=== PATIENT | male | born 1935 | race Caucasian/White ===

== ENCOUNTER 2016-07-22 11:36 | Day surgery (SDC) | payer OTHER, MEDICAID ==
[~2016-07-22] VITALS: Ht 170.2 cm; Wt 85.5 kg
[~2016-07-22 11:36] MED LIST: ASPI81 PO; DILT30 PO; FURO40TA PO; GLIP10TA6 PO; KLOR8TAB PO; LISI-357 PO; POLY17S PO; PROP10TA26 PO; ROSU20 PO; TERA5 PO; VITATAB25 PO
[2016-07-22] MEDS ORDERED: NS 1000P @30 MLS/HR (KVO) IV SCH (12:00)
[2016-07-22 12:12] VITALS: BP 157/92; PULSE 74; RESP 18; TEMP 98.1; O2SAT 95
[2016-07-22] MEDS ORDERED: TRAM50TA PO (12:20)
[2016-07-22] MEDS ORDERED: ASPI81TA5 PO (12:20)
[2016-07-22] MEDS ORDERED: CARV12.52 PO (12:20)
[2016-07-22] MEDS ORDERED: TERA10CA3 PO (12:20)
[2016-07-22] MEDS ORDERED: GLIP10TA6 PO (12:20)
[2016-07-22] MEDS ORDERED: ATOR1TAB18 PO (12:20)
[2016-07-22 12:32] LABS: AUTOMATED NEUTROPHIL # 3.7 TH/MM3 (1.8-7.7); BASOPHIL # 0.1 TH/MM3 (0-0.2); EOSINOPHIL # 0.1 TH/MM3 (0-0.4); EOSINOPHIL % 1.7 % (0.0-4.0); HEMATOCRIT 44.6 % (39.0-51.0); HEMO FLAGS DIFF FINAL; LYMPH % 31.3 % (9.0-44.0); MEAN CELL VOLUME 88.9 FL (80.0-100.0); MEAN CORPUSCULAR HEMOGLOBIN 29.3 PG (27.0-34.0); MONO % 6.8 % (0.0-8.0); NEUT % 59.2 % (16.0-70.0); PLATELET COUNT 124 TH/MM3 (150-450); RED BLOOD COUNT 5.02 MIL/MM3 (4.50-5.90); WHITE BLOOD COUNT 6.3 TH/MM3 (4.0-11.0)
[2016-07-22 12:40] LABS: APTT (PATIENT) 27.2 SEC (24.3-30.1); INTERNATIONAL NORMALIZED RATIO 1.1 RATIO; PROTHROMBIN TIME - PATIENT 11.7 SEC (9.8-11.6)
[2016-07-22 12:49] LABS: BICARBONATE 27.5 MEQ/L (21.0-32.0); POTASSIUM 3.6 MEQ/L (3.5-5.1)
[2016-07-22] MEDS ORDERED: MIDAZOLAM HCL 2 MG/2 ML VIAL ONE (15:36)
[2016-07-22] MEDS ORDERED: HEPARIN SODIUM - IV 10,000 UNITS/10 ML VIAL ONE (15:37)
[2016-07-22] MEDS ORDERED: VERAPAMIL HCL 5 MG/2 ML VIAL ONE (15:37)
[2016-07-22] MEDS ORDERED: NITROGLYCERIN INJ 5 ML ONE (15:37)
[2016-07-22] MEDS ORDERED: HEPARIN-NS/PF INJ 500 ML ONE (15:38)
[2016-07-22] MEDS ORDERED: IOHEXOL 350 MG/ML 100 ML BTL (for Cath Lab) OTHER ONE (15:52)
[2016-07-22] MEDS ORDERED: SODIUM CHLOR 0.9% 1000 ML INJ 1,000 ML IV SCH (16:32)
[2016-07-22] MEDS ORDERED: MISC INFORMATION XX ONE (16:45)
[2016-07-22] MEDS ORDERED: SODIUM CHLORIDE 0.9% FLUSH 5 ML FLUSH IVF PRN (16:45)
--- NOTE | 2016-07-22 16:49 | MA ---
cc: PABLO RICCI M.D., JOHN R. M.D. DATE 07/22/[address] Frank Hawthorne INDICATION He is an 81-year-old white male with coronary artery disease and status post CABG who presented complaining of dyspnea with exertion and was found to have a positive nuclear stress test with anterior wall ischemia. PROCEDURES PERFORMED 1. Left cardiac catheterization via left radial approach. 2. Selective coronary angiography. 3. Selective OLGUIN angiography. 4. No left ventricular angiogram was performed secondary to history of chronic kidney disease. PROCEDURE DETAILS 1% lidocaine to left wrist. Micropuncture needle into the left radial artery later exchanged for a 5-Belarusian sheath. Diagnostic angiography performed with 5-Belarusian INDIO, JL 3.5 and AR MOD catheter, respectively. The patient tolerated the procedure well and left the laboratory hemodynamically stable and chest pain free. At the end of the procedure radial sheath was removed and good hemostasis was obtained with a radial band. HEMODYNAMIC RESULTS The patient remained in normal sinus rhythm.. Aortic pressure was 112/63 with a mean of 82 mmHg. MEDICATIONS Versed 2 mg IV x1. Heparin 4300 units IV x1. Verapamil 2.5 mg intraarterial. Nitroglycerine 200 micrograms intraarterial. CONTRAST Total amount of contrast used was 60 mL of Omnipaque 300. ANGIOGRAPHIC Left main with 0% stenosis. Left anterior descending artery was 100% occluded after the origin of the first septal branch. The circumflex artery was a dominant vessel which had 0% stenosis. The right coronary artery was a non dominant vessel 100% occluded in its proximal segment. The OLGUIN to the left anterior descending artery was widely patent with 0% stenosis. IMPRESSION 1. Critical one-vessel coronary artery disease involving the left anterior descending artery. 2. Patent OLGUIN to the LAD. 3. Dominant left circumflex with no angiographic disease. RECOMMENDATIONS 1. Continue aspirin, statins, beta blockers and GEO inhibitor as tolerated. 2. Continue risk factor modification with cardiac diet, regular exercise and weight loss. Results represent a false positive stress test. MD JULIÁN Swann/BETZY /4:23 PM /4:38 PM [facility]ITAL[facility]
[2016-07-22] MEDS ORDERED: SODIUM CHLORIDE 0.9% FLUSH 5 ML FLUSH IVF SCH (21:00)
--- NOTE | 2016-07-23 21:22 | EKG ---
Date Performed: 07/22/2016 Time Performed: 12:47:12 PTAGE: 81 years EKG: Sinus rhythm with 1st degree A-V block Lead(s) unsuitable for analysis: V3 Inferior/lateral T wave changes are no nspecific Abnormal ECG PREVIOUS TRACING : 05/13/2015 17.16 DOCTOR: Herberth Glez Interpretating Date/Time 07/23/2016 21:11:05
== END 2016-07-22 20:35 | disposition home or self-care (01) ==
LOC: HDOC 11:36 → HDIC 11:37 → HDOC 20:35
PROVIDERS: ATTEND Specialist
DX: I25.10 Atherosclerotic heart disease of native coronary artery without angina pectoris (principal)
CPT/HCPCS: 80048; 85025; 85610; 85730; 93005; 93454; C1769; C1893; J1644; J2250; J3010; J7030; Q9967

== ENCOUNTER 2016-08-03 11:39 | Emergency (ER) | payer OTHER ==
[~2016-08-03] VITALS: Ht 172.7 cm; Wt 85.0 kg
[~2016-08-03 11:39] MED LIST changes: -ASPI81 PO; +ASPI81TA5 PO; +ATOR1TAB18 PO; +CARV12.52 PO; -DILT30 PO; -FURO40TA PO; -KLOR8TAB PO; -LISI-357 PO; -POLY17S PO; -PROP10TA26 PO; -ROSU20 PO; +TERA10CA3 PO; -TERA5 PO; +TRAM50TA PO; -VITATAB25 PO
[2016-08-03 11:42] VITALS: BP 145/64; PULSE 65; RESP 16; TEMP 98.2; O2SAT 98
[2016-08-03] MEDS ORDERED: FURO40TA PO (21:18)
== END 2016-08-03 12:46 | disposition left against medical advice (07) ==
LOC: NED 11:39
DX: R68.89 Other general symptoms and signs (principal)
CPT/HCPCS: 99281

== ENCOUNTER 2016-08-03 18:02 | Emergency (ER) | payer OTHER ==
[~2016-08-03] VITALS: Ht 172.7 cm; Wt 80.0 kg
[2016-08-03 18:05] VITALS: BP 132/61; PULSE 70; RESP 17; TEMP 98.4; O2SAT 97
[2016-08-03] MEDS ORDERED: SODIUM CHLOR 0.9% 1000 ML INJ 1,000 ML IV SCH (21:14)
[2016-08-03] MEDS ORDERED: SODIUM CHLORIDE 0.9% FLUSH 5 ML FLUSH IVF PRN (21:15)
[2016-08-03] MEDS ORDERED: MORPHINE SULFATE 4 MG/ML INJ IV PUSH ONE (21:15)
[2016-08-03] MEDS ORDERED: ONDANSETRON HCL 4 MG/2 ML VIAL IVP ONE (21:15)
[2016-08-03 21:18] VITALS: RESP 16
[2016-08-03] MEDS ORDERED: FURO40TA PO (21:18)
--- NOTE | 2016-08-03 21:31 | PD ---
HPI Chief Complaint: Complaint Time Seen by Provider: 21:05 Travel History International Travel<30 days: No Contact w/Intl Traveler<30days: No Traveled to known affect area: No History of Present Illness HPI Patient is an 81-year-old male who presents to emergency room with complaints of right-sided flank pain. Patient reports that he has been having right-sided flank pain which is been intermittent in nature for the past 3 days. Patient reports that the pain does radiate to his flank. Reports no history of kidney stones in the past. Denies hematuria. Denies dysuria, urinary urgency, reports urinary frequency. Denies chest pain or shortness of breath. Denies fevers or chills. PFSH Past Medical History Hx Anticoagulant Therapy: Yes (aspirin) Arthritis: Yes Blood Disorders: No Heart Rhythm Problems: No Cancer: No Cardiac Catheterization: Yes Cardiovascular Problems: Yes ([place], stent) High Cholesterol: Yes Chemotherapy: No Chest Pain: No Congestive Heart Failure: No COPD: Yes Diabetes: Yes Patient Takes Glucophage: Yes Diminished Hearing: Yes Endocrine: Yes Gastrointestinal Disorders: No Glaucoma: No Genitourinary: No Hepatitis: No Hiatal Hernia: No Hypertension: Yes Immune Disorder: No Musculoskeletal: Yes Neurologic: No Psychiatric: No Reproductive: No Respiratory: Yes (COPD) Integumentary: No Immunizations Current: Yes Myocardial Infarction: Yes Radiation Therapy: No Sickle Cell Disease: No Thyroid Disease: No Influenza Vaccination: Yes Past Surgical History Abdominal Surgery: No AICD: No Arteriovenous Shunt: No Cardiac Surgery: Yes (CABG 24 YRS/ ANGIOPLASTY AND STENTS) Coronary Artery Bypass Graft: Yes (SINGLE) Coronary Stent: Yes (STENT IN R. FEMEROL) Ear Surgery: No Endocrine Surgery: No Eye Surgery: No Genitourinary Surgery: No Gynecologic Surgery: No Insulin Pump: No Joint Replacement: No Oral Surgery: No Pacemaker: No Thoracic Surgery: Yes Other Surgery: Yes (CABG 24 YRS/ ANGIOPLASTY AND STENTS) Social History Alcohol Use: Yes (on occasion) Tobacco Use: No (QUIT 30 YRS AGO) Substance Use: No Allergies-Medications (Allergen,Severity, Reaction): Coded Allergies: No Known Allergies (Verified , 08/03/16) Reported Meds & Prescriptions Reported Meds & Active Scripts Active Reported Furosemide 40 Mg Tab 40 Mg PO BID Aspirin DR (Aspirin) 81 Mg Tabdr 81 Mg PO DAILY Atorvastatin (Atorvastatin Calcium) 80 Mg Tab 80 Mg PO HS Carvedilol 12.5 Mg Tab 12.5 Mg PO BID Glipizide 10 Mg Tab 10 Mg PO DAILY Take 30 minutes before a meal Terazosin (Terazosin HCl) 10 Mg Cap 10 Mg PO HS Tramadol (Tramadol HCl) 50 Mg Tab 50 Mg PO DIRECTED Review of Systems General / Constitutional: No: Fever Eyes: No: Visual changes HENT: No: Headaches Cardiovascular: No: Chest Pain or Discomfort Respiratory: No: Shortness of Breath Gastrointestinal: Positive: Abdominal Pain, No: Nausea, Vomiting Genitourinary: Positive: Frequency, No: Dysuria, Nocturia, Hematuria Musculoskeletal: No: Pain Skin: No Rash Neurologic: No: Weakness Psychiatric: No: Depression Endocrine: No: Polydipsia Hematologic/Lymphatic: No: Easy Bruising Physical Exam Narrative GENERAL: Nontoxic, no acute distress SKIN: Warm and dry. HEAD: Atraumatic. Normocephalic. EYES: Pupils equal and round. No scleral icterus. No injection or drainage. ENT: No nasal bleeding or discharge. Mucous membranes pink and moist. NECK: Trachea midline. No JVD. CARDIOVASCULAR: Regular rate and rhythm. No murmur appreciated. RESPIRATORY: No accessory muscle use. Clear to auscultation. Breath sounds equal bilaterally. GASTROINTESTINAL: Abdomen soft, non-tender, nondistended. Patient with right- sided flank pain. MUSCULOSKELETAL: No obvious deformities. No clubbing. No cyanosis. No edema. NEUROLOGICAL: Awake and alert. No obvious cranial nerve deficits. Motor grossly within normal limits. Normal speech. PSYCHIATRIC: Appropriate mood and affect; insight and judgment normal. Data Data Last Documented VS Vital Signs Date Time Temp Pulse Resp B/P Pulse Ox O2 Delivery O2 Flow Rate FiO2 08/03/16 21:18 16 08/03/16 18:05 98.4 70 132/61 97 Orders Complete Blood Count With Diff (08/03/16 21:14) Comprehensive Metabolic Panel (08/03/16 21:14) Lipase (08/03/16 21:14) Prothrombin Time / Inr (Pt) (08/03/16 21:14) Act Partial Throm Time (Ptt) (08/03/16 21:14) Urinalysis - C+S If Indicated (08/03/16 21:14) Ct Abd/Pel W/O Iv Contrast (08/03/16 21:14) Iv Access Insert/Monitor (08/03/16 21:14) Ecg Monitoring (08/03/16 21:14) Oximetry (08/03/16 21:14) Morphine Inj (Morphine Inj) (08/03/16 21:15) Ondansetron Inj (Zofran Inj) (08/03/16 21:15) Sodium Chlor 0.9% 1000 Ml Inj (Ns 1000 M (08/03/16 21:14) Sodium Chloride 0.9% Flush (Ns Flush) (08/03/16 21:15) Electrocardiogram (08/03/16 ) Labs Laboratory Tests Test 08/03/16 08/03/16 21:20 22:30 White Blood Count 10.0 TH/MM3 Red Blood Count 5.53 MIL/MM3 Hemoglobin 16.4 GM/DL Hematocrit 49.0 % Mean Corpuscular Volume 88.6 FL Mean Corpuscular Hemoglobin 29.6 PG Mean Corpuscular Hemoglobin 33.4 % Concent Red Cell Distribution Width 16.3 % Platelet Count 140 TH/MM3 Mean Platelet Volume 9.2 FL Neutrophils (%) (Auto) 53.8 % Lymphocytes (%) (Auto) 34.2 % Monocytes (%) (Auto) 8.5 % Eosinophils (%) (Auto) 3.0 % Basophils (%) (Auto) 0.5 % Neutrophils # (Auto) 5.4 TH/MM3 Lymphocytes # (Auto) 3.4 TH/MM3 Monocytes # (Auto) 0.9 TH/MM3 Eosinophils # (Auto) 0.3 TH/MM3 Basophils # (Auto) 0.0 TH/MM3 CBC Comment DIFF FINAL Differential Comment Prothrombin Time 10.8 SEC Prothromb Time International 1.0 RATIO Ratio Activated Partial 26.4 SEC Thromboplast Time Sodium Level 139 MEQ/L Potassium Level 3.9 MEQ/L Chloride Level 102 MEQ/L Carbon Dioxide Level 30.3 MEQ/L Anion Gap 7 MEQ/L Blood Urea Nitrogen 27 MG/DL Creatinine 1.53 MG/DL Estimat Glomerular Filtration 44 ML/MIN Rate Random Glucose 81 MG/DL Calcium Level 8.5 MG/DL Total Bilirubin 1.0 MG/DL Aspartate Amino Transf 24 U/L (AST/SGOT) Alanine Aminotransferase 37 U/L (ALT/SGPT) Alkaline Phosphatase 116 U/L Total Protein 7.0 GM/DL Albumin 3.8 GM/DL Lipase 409 U/L Urine Color YELLOW Urine Turbidity CLEAR Urine pH 6.5 Urine Specific [place] 1.013 Urine Protein NEG mg/dL Urine Glucose (UA) NEG mg/dL Urine Ketones NEG mg/dL Urine Occult Blood NEG Urine Nitrite NEG Urine Bilirubin NEG Urine Urobilinogen LESS THAN 2.0 MG/DL Urine Leukocyte Esterase NEG Urine RBC 1 /hpf Urine WBC 2 /hpf Urine Squamous Epithelial <1 /hpf Cells Urine Hyaline Casts 1 /lpf Urine Mucus FEW /lpf Microscopic Urinalysis Comment CULT NOT INDICATED MDM Medical Decision Making Medical Screen Exam Complete: Yes Emergency Medical Condition: Yes Interpretation(s) EKG from 2106: NSR at 69bpm, qt/qtc: 419/438, 1st degree av block, nonspecific st and t wave changes, no change from 07/22/16 Vital Signs Date Time Temp Pulse Resp B/P Pulse Ox O2 Delivery O2 Flow Rate FiO2 08/03/16 21:18 16 08/03/16 18:05 98.4 70 17 132/61 97 Differential Diagnosis ACS, kidney stones, pyelonephritis, uti, muscle strain, aortic dissection Narrative Course Patient is an 81-year-old male who presents most room with complaints of right sided flank pain. Patient reports that pain has been intermittent in nature, reports the pain started 3 days ago. Reports that symptoms pain is radiating to his right groin. Patient with no history of kidney stones in the past. Patient denies hematuria, denies your urinary urgency or dysuria. Reports urinary frequency. Patient well-appearing emergency room. Patient with intermittent right sided flank pain. CBC, BMP, UA ordered for further evaluation symptoms. CT of the abdomen and pelvis without IV contrast ordered for evaluation of possible kidney stone. Patient reevaluated, patient reports that he is feeling much better. Patient with resolution of pain at this time. Reviewed all labs and all studies with patient detail. Patient will follow-up with his primary care doctor and return to ER as needed. CBC: WBC 10 Hemoglobin 16.4 Hematocrit 49 Platelets 140 CMP: Sodium 139 Chloride 102 Potassium 3.9 Bicarbonate 30.3 BUN 27 Creatinine 1.53 Lipase 409 UA: Negative leuk esterase, negative nitrites CT of the abdomen and pelvis: No acute findings. Bilateral renal cysts. Sigmoid diverticulosis. No hydronephrosis or evidence for obstructive uropathy. Signs and symptoms of when to return to the emergency room reviewed patient in detail. Patient will return to ER as needed. Diagnosis Primary Impression: Flank pain Additional Impressions: Renal insufficiency Thrombocytopenia Elevated lipase Patient Instructions: General Instructions, Narcotic given in the ED Additional Instructions: Please give a copy of patient's labs and studies at discharge Please follow-up with your primary care doctor Return to ER symptoms progress or worsen Disposition: 01 DISCHARGE HOME Condition: Stable Ann Hubbard DO Aug 03, 2016 21:31
[2016-08-03 21:37] LABS: AUTOMATED NEUTROPHIL # 5.4 TH/MM3 (1.8-7.7); BASOPHIL % 0.5 % (0.0-2.0); EOSINOPHIL # 0.3 TH/MM3 (0-0.4); HEMO FLAGS DIFF FINAL; LYMPH % 34.2 % (9.0-44.0); LYMPHOCYTE # 3.4 TH/MM3 (1.0-4.8); MEAN CELL VOLUME 88.6 FL (80.0-100.0); MEAN CORPUSCULAR HEMOGLOBIN 29.6 PG (27.0-34.0); MEAN CORPUSCULAR HGB CONC 33.4 % (32.0-36.0); MONO % 8.5 % (0.0-8.0); NEUT % 53.8 % (16.0-70.0); PLATELET COUNT 140 TH/MM3 (150-450); RED BLOOD COUNT 5.53 MIL/MM3 (4.50-5.90); RED CELL DISTRIBUTION WIDTH 16.3 % (11.6-17.2)
[2016-08-03 21:51] LABS: APTT (PATIENT) 26.4 SEC (24.3-30.1); PROTHROMBIN TIME - PATIENT 10.8 SEC (9.8-11.6)
[2016-08-03 21:54] LABS: ANION GAP 7 MEQ/L (5-15); AST (GOT) 24 U/L (15-37); BICARBONATE 30.3 MEQ/L (21.0-32.0); BLOOD UREA NITROGEN 27 MG/DL (7-18); CHLORIDE 102 MEQ/L (98-107); GLOMERULAR FILTRATION RATE 44 ML/MIN (>89); POTASSIUM 3.9 MEQ/L (3.5-5.1); SODIUM (NA) 139 MEQ/L (136-145)
[2016-08-03 21:56] LABS: ALKALINE PHOSPHATASE 116 U/L (45-117); ALT (GPT) 37 U/L (12-78)
--- NOTE | 2016-08-03 22:20 | RADRPT ---
EXAM DATE/TIME: 08/03/2016 21:33 [facility] COMPARISON: No previous studies available for comparison. INDICATIONS : Bilateral flank pain today. ORAL CONTRAST: No oral contrast ingested. RADIATION DOSE: 11.02 CTDIvol (mGy) MEDICAL HISTORY : Hypertension. Chronic obstructive pulmonary disease. Cardiovascular disease SURGICAL HISTORY : CABG ENCOUNTER: Initial ACUITY: 1 day PAIN SCALE: 7/10 LOCATION: Bilateral flank TECHNIQUE: Volumetric scanning of the abdomen and pelvis was performed. Using automated exposure control and adjustment of the mA and/or kV according to patient size, radiation dose was kept as low as reasonably achievable to obtain optimal diagnostic quality images. FINDINGS: Small bilateral pleural effusions. No acute findings in the liver, spleen, adrenals or pancreas. Mult iple calcified gallstones in the gallbladder. Bilateral renal cysts present similar to May 2015. There is colonic diverticulosis without evidence for diverticulitis. There is a fat containing right inguinal hernia similar to prior exam. Prostate is enlarged with impingement on the base of the bladd er. CONCLUSION: No acute findings within the abdomen and pelvis. Small pleural effusions bilaterally. Multiple calcif ied gallstones without biliary ductal dilatation. Bilateral renal cysts. Sigmoid diverticulosis. No h ydronephrosis or evidence for obstructive uropathy. Farhad Guerrero MD on August 03, 2016 at 22:15 Board Certified Radiologist. This report was verified electronically.
[2016-08-03 23:07] LABS: BLOOD, URINE NEG (NEG); COMMENT (UR) CULT NOT INDICATED; CULTURE IF INDICATED CULT NOT INDICATED; GLUCOSE,URINE NEG (NEG); HYALINE CAST, URINE 1 /lpf (RARE); KETONE, URINE NEG (NEG); MUCUS URINE FEW /lpf (OCC); NITRITE,URINE NEG (NEG); PH, URINE 6.5 (5.0-8.5); SQUAMOUS EPITHELIAL CELL URINE <1 /hpf (0-5); URINE COLOR YELLOW (YELLW/STRAW)
[2016-08-04 00:42] VITALS: BP 152/77
--- NOTE | 2016-08-04 13:46 | EKG ---
Date Performed: 08/03/2016 Time Performed: 21:07:04 PTAGE: 81 years EKG: Sinus rhythm WITH FIRST DEGREE AV BLOCK WITH FREQUENT SUPRAVENTRICULAR PREMATURE COMPLEXES NONSPECIFIC ST & T-WAV E ABNORMALITY ABNORMAL ECG Compared to prior tracing no significant change PREVIOUS TRACING : 07/22/2016 12.47 DOCTOR: Rocio Pond Interpretating Date/Time 08/04/2016 13:44:51
== END 2016-08-04 00:43 | disposition home or self-care (01) ==
LOC: NEPA 18:02
DX: R10.811 Right upper quadrant abdominal tenderness (principal); N28.9 Disorder of kidney and ureter, unspecified; D69.6 Thrombocytopenia, unspecified; R74.8 Abnormal levels of other serum enzymes; I44.0 Atrioventricular block, first degree; R94.31 Abnormal electrocardiogram [ECG] [EKG]; I49.3 Ventricular premature depolarization; I10 Essential (primary) hypertension; E11.9 Type 2 diabetes mellitus without complications; I25.2 Old myocardial infarction; Z95.1 Presence of aortocoronary bypass graft
CPT/HCPCS: 74176; 80053; 81001; 83690; 85025; 85610; 85730; 93005; 96361; 96374; 96375; 99284; J2270; J2405; J7030

== ENCOUNTER 2017-03-24 10:42 | Day surgery (SDC) | payer OTHER, MEDICAID ==
[~2017-03-24 10:42] MED LIST changes: +FURO40TA PO
[2017-03-24] MEDS ORDERED: APIX2.5T PO (11:12)
[2017-03-24] MEDS ORDERED: METOPROLOL TARTRATE 25 MG TAB PO PRN (11:30)
[2017-03-24] MEDS ORDERED: LACTATED RINGER'S 1000 ML IV PRN (11:30)
[2017-03-24] MEDS ORDERED: SODIUM CHLORID 0.9% 500 ML IV PRN (11:30)
[2017-03-24] MEDS ORDERED: POVIDONE IODINE 5% (ANTISEPSIS KIT) 4 APPLICATIONS EACH NARE PRN (11:30)
[2017-03-24] MEDS ORDERED: INSULIN HUMAN REGULAR 1,000 UNITS/10 ML VIAL SQ PRN (11:30)
[2017-03-24] MEDS ORDERED: CHLORHEXIDINE GLUCONATE 2 % 1 PACK (2 CLOTHS) TOPICAL PRN (11:30)
--- NOTE | 2017-03-24 15:35 | MR ---
cc: PABLO RICCI M.D. DATE: 03/24/2017 INDICATION 82-year-old white male with new onset symptomatic atrial fibrillation. PROCEDURE PERFORMED Cardioversion. DETAILED PROCEDURE 1. 12 lead EKG obtained. 2. Informed consent was obtained. 3. IV was placed and the patient was continuously monitored with EKG and vital signs. 4. AP pads were placed. 5. The patient was given IV sedation with propofol by the anesthesia department. 6. The patient was shocked with 200 joules of biphasic synchronized energy resulting in normal sinus rhythm. 7. The patient woke up uneventfully with no complications. IMPRESSION Successful cardioversion of atrial fibrillation into normal sinus rhythm. RECOMMENDATIONS 1. Continue Eliquis at 2.5 mg twice a day for embolic prevention. 2. Follow up in my office in 4 weeks. MD JULIÁN Swann/DERIK /2:12 PM /3:11 PM MTDShefali
--- NOTE | 2017-03-24 23:38 | EKG ---
Date Performed: 03/24/2017 Time Performed: 14:49:32 PTAGE: 82 years EKG: Sinus rhythm with PAC(s) with 1st degree A-V block Prolonged QT interval Extensive T wave changes are nonspecific Abnormal ECG PREVIOUS TRACING : 03/24/2017 10.59 Compared to the previous tracing, now in sinus rhythm, QTc appears longer DOCTOR: Lino Carter Interpretating Date/Time 03/24/2017 23:37:46
--- NOTE | 2017-03-24 23:50 | EKG ---
Date Performed: 03/24/2017 Time Performed: 10:59:28 PTAGE: 82 years EKG: Atrial fibrillation Inferior/lateral ST-T changes are nonspecific Abnormal ECG PREVIOUS TRACING : 08/03/2016 21.07 Compared to the previous tracing, now in atrial fibrillatio n DOCTOR: Lino Carter Interpretating Date/Time 03/24/2017 23:49:45
== END 2017-03-24 16:30 | disposition home or self-care (01) ==
LOC: HDOC 10:42 → HDIC 10:43 → HDOC 16:30
PROVIDERS: ATTEND Specialist
DX: I48.91 Unspecified atrial fibrillation (principal)
CPT/HCPCS: 92960; 93005

== ENCOUNTER → 2017-06-01 | Outpatient (CLI) | payer OTHER, MEDICAID ==
[~2017-06-01] MED LIST changes: +APIX2.5T PO; -ASPI81TA5 PO; -ATOR1TAB18 PO; +ATOR80TA45 PO; -TRAM50TA PO
[2017-06-01 12:05] LABS: BLOOD GAS CARBOXYHEMOGLOBIN 0.9 % (0-4); BLOOD GAS HCO3 24 mmol/L (22-26); BLOOD GAS METHEMOGLOBIN 1.1 % (0-2); BLOOD GAS O2 HGB SATURATION 94 % (90-100); BLOOD GAS OXYGEN CONTENT 19.3 Vol % (12.0-20.0); BLOOD GAS PCO2 36 mmHg (38-42); BLOOD GAS PO2 87 mmHg (61-120); BLOOD GAS TOTAL HGB 14.5 G/DL (12.0-16.0); CRITICAL VALUE NO; DRAW SITE RT RADIAL; FIO2 21 %; NUMBER OF ARTERIAL PUNCTURES 1; STAT NO; TEMP CORR TO 98.6; ULNAR PULSE PRESENT
--- NOTE | 2017-06-03 08:55 | RSPPFT ---
DATE OF PROCEDURE: 06/01/17 COMMENTS: Spirometry shows FVC of 2.0 at 66% of predicted, FEV1 of 1.4 at 59%, FEV1/FVC ratio is decreased. Flow is decreased at FEF 25, FEF 50, FEF 75 and FEF 25-75. There is no response after acutely inhaled bronchodilator treatment. Lung volumes show residual volume is normal. TLC is normal. Diffusion capacity is normal when corrected for lung volumes. Flow volume loop indicates an obstructive pattern. Blood gases show pH of 7.44, PCO2 of 36, PO2 of 87, BiCarb of 24 and O2 Saturation at 94%. IMPRESSION: 1. Mild small airways obstructive lung disease. 2. No response after bronchodilator treatment. 3. Normal lung volumes. 4. Normal diffusion capacity. 5. Blood gases show normal oxygenation on room air.
== END ==
LOC: HRSP 11:02
PROVIDERS: ATTEND Specialist
DX: J44.9 Chronic obstructive pulmonary disease, unspecified (principal)
CPT/HCPCS: 36600; 82805; 94060; 94726; 94729

== ENCOUNTER 2017-08-03 14:25 | Emergency (ER) | payer OTHER, MEDICAID ==
[~2017-08-03] VITALS: Ht 170.2 cm; Wt 81.0 kg
[2017-08-03 14:48] VITALS: BP 135/65; PULSE 70; RESP 16; TEMP 97.7; O2SAT 97
[2017-08-03 16:15] VITALS: O2SAT 98
[2017-08-03] MEDS ORDERED: SODIUM CHLORIDE 0.9% FLUSH 10 ML FLUSH IVF PRN (16:15)
[2017-08-03 16:28] LABS: AUTOMATED NEUTROPHIL # 2.9 TH/MM3 (1.8-7.7); BASOPHIL # 0.1 TH/MM3 (0-0.2); BASOPHIL % 1.2 % (0.0-2.0); EOSINOPHIL # 0.2 TH/MM3 (0-0.4); EOSINOPHIL % 2.7 % (0.0-4.0); HEMATOCRIT 45.7 % (39.0-51.0); HEMOGLOBIN 14.9 GM/DL (13.0-17.0); LYMPH % 38.7 % (9.0-44.0); LYMPHOCYTE # 2.4 TH/MM3 (1.0-4.8); MEAN CORPUSCULAR HEMOGLOBIN 28.9 PG (27.0-34.0); MEAN CORPUSCULAR HGB CONC 32.5 % (32.0-36.0); MEAN PLATELET VOLUME 9.1 FL (7.0-11.0); MONOCYTE # 0.5 TH/MM3 (0-0.9); NEUT % 49.4 % (16.0-70.0); PLATELET COUNT 112 TH/MM3 (150-450); RED BLOOD COUNT 5.14 MIL/MM3 (4.50-5.90); RED CELL DISTRIBUTION WIDTH 14.4 % (11.6-17.2); WHITE BLOOD COUNT 6.1 TH/MM3 (4.0-11.0)
[2017-08-03 16:40] LABS: CHLORIDE 106 MEQ/L (98-107); SODIUM (NA) 140 MEQ/L (136-145)
[2017-08-03 16:43] LABS: ALBUMIN 3.4 GM/DL (3.4-5.0); BICARBONATE 29.7 MEQ/L (21.0-32.0); CALCIUM 8.5 MG/DL (8.5-10.1); GLUCOSE,RANDOM 95 MG/DL (74-106); MAGNESIUM 2.4 MG/DL (1.5-2.5)
[2017-08-03 16:44] LABS: BLOOD UREA NITROGEN 19 MG/DL (7-18)
[2017-08-03 16:46] LABS: ALT (GPT) 17 U/L (12-78); AST (GOT) 22 U/L (15-37)
[2017-08-03 16:47] LABS: GLOMERULAR FILTRATION RATE 45 ML/MIN (>89)
[2017-08-03 16:48] LABS: TOTAL BILIRUBIN ADULT 0.8 MG/DL (0.2-1.0); TOTAL PROTEIN 6.8 GM/DL (6.4-8.2)
--- NOTE | 2017-08-03 17:00 | PD ---
HPI Chief Complaint: Cardiac Complaint Time Seen by Provider: 15:52 Travel History International Travel<30 days: No Contact w/Intl Traveler<30days: No Traveled to known affect area: No History of Present Illness HPI Patient is a 82-year-old male presents emergency department for evaluation of a heart fluttering intermittently over the entire day today. Denies any chest pain shortness of breath abdominal pain nausea vomiting, states last time this happened was about an hour or 2 prior to arrival. He states he feels okay now. States he has a history of paroxysmal atrial fibrillation, on anticoagulation for this. Denies any focalized weakness. States symptoms are mild, waxing and waning, context as above, associated signs and symptoms as above PFSH Past Medical History Hx Anticoagulant Therapy: Yes (aspirin) Arthritis: Yes Atrial Fibrillation: Yes (cardioverted in past) Blood Disorders: No Heart Rhythm Problems: No Cancer: No Cardiac Catheterization: Yes Cardiovascular Problems: Yes ([place], stent) High Cholesterol: Yes Chemotherapy: No Chest Pain: No Congestive Heart Failure: No COPD: Yes Diabetes: Yes Patient Takes Glucophage: No Diminished Hearing: Yes Endocrine: Yes Gastrointestinal Disorders: No Glaucoma: No Genitourinary: No Hepatitis: No Hiatal Hernia: No Hypertension: Yes Immune Disorder: No Musculoskeletal: Yes Neurologic: No Psychiatric: No Reproductive: No Respiratory: Yes (COPD) Integumentary: No Immunizations Current: Yes Myocardial Infarction: Yes Radiation Therapy: No Sickle Cell Disease: No Thyroid Disease: No Past Surgical History Abdominal Surgery: No AICD: No Arteriovenous Shunt: No Cardiac Surgery: Yes (CABG 24 YRS/ ANGIOPLASTY AND STENTS) Coronary Artery Bypass Graft: Yes (SINGLE) Coronary Stent: Yes (STENT IN R. FEMEROL) Ear Surgery: No Endocrine Surgery: No Eye Surgery: No Genitourinary Surgery: No Gynecologic Surgery: No Insulin Pump: No Joint Replacement: No Neurologic Surgery: No Oral Surgery: No Pacemaker: No Thoracic Surgery: Yes Other Surgery: Yes (CABG 24 YRS/ ANGIOPLASTY AND STENTS) Social History Alcohol Use: Yes (on occasion) Tobacco Use: No (QUIT 30 YRS AGO) Substance Use: No Allergies-Medications (Allergen,Severity, Reaction): Coded Allergies: No Known Allergies (Verified Adverse Reaction, Unknown, 08/03/17) Reported Meds & Prescriptions Reported Meds & Active Scripts Active Reported Eliquis (Apixaban) 2.5 Mg Tab 2.5 Mg PO BID Furosemide 40 Mg Tab 40 Mg PO BID Atorvastatin (Atorvastatin Calcium) 80 Mg Tab 80 Mg PO HS Carvedilol 12.5 Mg Tab 12.5 Mg PO BID Glipizide 10 Mg Tab 10 Mg PO DAILY Take 30 minutes before a meal Terazosin (Terazosin HCl) 10 Mg Cap 10 Mg PO HS Review of Systems Except as stated in HPI: all other systems reviewed are Neg Physical Exam Narrative GENERAL: Well-developed well-nourished in no obvious distress, quite pleasant SKIN: Focused skin assessment warm/dry. HEAD: Atraumatic. Normocephalic. EYES: Pupils equal and round. No scleral icterus. No injection or drainage. ENT: No nasal bleeding or discharge. Mucous membranes pink and moist. NECK: Trachea midline. No JVD. CARDIOVASCULAR: Regular rate and rhythm. No murmur appreciated. RESPIRATORY: No accessory muscle use. Clear to auscultation. Breath sounds equal bilaterally. GASTROINTESTINAL: Abdomen soft, non-tender, nondistended. Hepatic and splenic margins not palpable. MUSCULOSKELETAL: No obvious deformities. No clubbing. No cyanosis. No edema. NEUROLOGICAL: Awake and alert. No obvious cranial nerve deficits. Motor grossly within normal limits. Normal speech. PSYCHIATRIC: Appropriate mood and affect; insight and judgment normal. Data Data Last Documented VS Vital Signs Date Time Temp Pulse Resp B/P (MAP) Pulse Ox O2 Delivery O2 Flow Rate FiO2 08/03/17 18:27 08/03/17 17:40 74 16 97 Room Air 08/03/17 14:48 97.7 Orders Orders Electrocardiogram (08/03/17 14:56) Ckmb (Isoenzyme) Profile (08/03/17 16:12) Complete Blood Count With Diff (08/03/17 16:12) Comprehensive Metabolic Panel (08/03/17 16:12) Magnesium (Mg) (08/03/17 16:12) Troponin I (08/03/17 16:12) Chest, Single Ap (08/03/17 16:12) Ecg Monitoring (08/03/17 16:12) Iv Access Insert/Monitor (08/03/17 16:12) Oximetry (08/03/17 16:12) Oxygen Administration (08/03/17 16:12) Sodium Chloride 0.9% Flush (Ns Flush) (08/03/17 16:15) Thyroid Stimulating Hormone (08/03/17 16:12) Ed Discharge Order (08/03/17 18:06) Labs Laboratory Tests Test 08/03/17 16:19 White Blood Count 6.1 TH/MM3 Red Blood Count 5.14 MIL/MM3 Hemoglobin 14.9 GM/DL Hematocrit 45.7 % Mean Corpuscular Volume 89.0 FL Mean Corpuscular Hemoglobin 28.9 PG Mean Corpuscular Hemoglobin Concent 32.5 % Red Cell Distribution Width 14.4 % Platelet Count 112 TH/MM3 Mean Platelet Volume 9.1 FL Neutrophils (%) (Auto) 49.4 % Lymphocytes (%) (Auto) 38.7 % Monocytes (%) (Auto) 8.0 % Eosinophils (%) (Auto) 2.7 % Basophils (%) (Auto) 1.2 % Neutrophils # (Auto) 2.9 TH/MM3 Lymphocytes # (Auto) 2.4 TH/MM3 Monocytes # (Auto) 0.5 TH/MM3 Eosinophils # (Auto) 0.2 TH/MM3 Basophils # (Auto) 0.1 TH/MM3 CBC Comment DIFF FINAL Differential Comment Blood Urea Nitrogen 19 MG/DL Creatinine 1.50 MG/DL Random Glucose 95 MG/DL Total Protein 6.8 GM/DL Albumin 3.4 GM/DL Calcium Level 8.5 MG/DL Magnesium Level 2.4 MG/DL Alkaline Phosphatase 115 U/L Aspartate Amino Transf (AST/SGOT) 22 U/L Alanine Aminotransferase (ALT/SGPT) 17 U/L Total Bilirubin 0.8 MG/DL Sodium Level 140 MEQ/L Potassium Level 4.3 MEQ/L Chloride Level 106 MEQ/L Carbon Dioxide Level 29.7 MEQ/L Anion Gap 4 MEQ/L Estimat Glomerular Filtration Rate 45 ML/MIN Total Creatine Kinase 99 U/L Troponin I 0.04 NG/ML Thyroid Stimulating Hormone 3rd Gen 1.550 uIU/ML [facility] Medical Decision Making Medical Screen Exam Complete: Yes Emergency Medical Condition: Yes Differential Diagnosis Palpitations, paroxysmal atrial fibrillation, ACS unlikely, [place] unlikely Narrative Course Patient 82-year-old male room to the emergency department for evaluation of palpitations. He appears well in no obvious distress, no symptoms to suggest acute coronary syndrome. He appears well, basic workup in the emergency department negative, his troponin negative, EKG negative, cardiac telemetry has not shown any abnormalities. Discussed with him need for follow-up with a tack picker, see no indication for further workup at this time. He is stable for discharge Diagnosis Primary Impression: Heart palpitations Referrals: Reina Moore MD Disposition: 01 DISCHARGE HOME Condition: Stable King Kellogg MD Aug 03, 2017 17:00
[2017-08-03 17:03] LABS: ALKALINE PHOSPHATASE 115 U/L (45-117); TROPONIN I 0.04 NG/ML (0.02-0.05)
[2017-08-03 17:40] VITALS: BP 142/81; PULSE 74; RESP 16; O2SAT 97
--- NOTE | 2017-08-03 17:42 | RADRPT ---
EXAM DATE/TIME: 08/03/2017 17:13 [facility] COMPARISON: CHEST SINGLE AP, May 13, 2015, 17:29. INDICATIONS : Chest discomfort for 3 days. MEDICAL HISTORY : Hypertension. Chronic obstructive pulmonary disease. Cardiovascular disease. SURGICAL HISTORY : CABG. ENCOUNTER: Initial ACUITY: 3 days PAIN SCORE: 2/10 LOCATION: Bilateral chest FINDINGS: Again there is noted to be prior median sternotomy cardiac surgery. Heart is upper limits of normal. There is a prominence of mid and basilar pulmonary interstitium relative to the prior study which cou ld represent mild CHF pulmonary vascular congestion. CONCLUSION: Prior median sternotomy cardiac surgery. Mild prominence of the interstitium the perivascular space s uggesting mild CHF Wilfred Plunkett MD on August 03, 2017 at 17:38 Board Certified Radiologist. This report was verified electronically.
--- NOTE | 2017-08-04 10:03 | EKG ---
Date Performed: 08/03/2017 Time Performed: 14:56:42 PTAGE: 82 years EKG: Sinus rhythm WITH FIRST DEGREE AV BLOCK WITH OCCASIONAL SUPRAVENTRICULAR PREMATURE COMPLEXES LOW QRS VOLTAGE IN E XTREMITY LEADS ABNORMAL ECG PREVIOUS TRACING 03/24/17 Compared to prior study, nonspecific T-wave changes have improved. DOCTOR: Erlin Meade Interpretating Date/Time 08/04/2017 10:02:21
== END 2017-08-03 18:30 | disposition home or self-care (01) ==
LOC: PHED 14:25
DX: R00.2 Palpitations (principal); I44.0 Atrioventricular block, first degree; I25.10 Atherosclerotic heart disease of native coronary artery without angina pectoris; I10 Essential (primary) hypertension; I48.0 Paroxysmal atrial fibrillation; J44.9 Chronic obstructive pulmonary disease, unspecified; E78.00 Pure hypercholesterolemia, unspecified; I25.2 Old myocardial infarction; M19.90 Unspecified osteoarthritis, unspecified site; E11.9 Type 2 diabetes mellitus without complications; Z95.5 Presence of coronary angioplasty implant and graft; Z95.1 Presence of aortocoronary bypass graft; Z79.01 Long term (current) use of anticoagulants; Z79.899 Other long term (current) drug therapy
CPT/HCPCS: 71045; 80053; 82550; 83735; 84443; 84484; 85025; 93005

== ENCOUNTER 2018-06-12 19:56 | Observation (INO) ==
--- NOTE | 2018-06-12 21:15 | XR ---
EXAM DATE: 06/12/2018 8:52 PM EST AGE/SEX: 83 years / Male INDICATIONS: Short of breath. Possible pleural effusion. CLINICAL DATA: This is the patient's initial encounter. Patient reports that signs and symptoms have been present for 1 day and indicates a pain score of 0/10. MEDICAL/SURGICAL HISTORY: . Hypertension. Chronic obstructive pulmonary disease. Cardiovascular disease. CABG. COMPARISON: POI, XR CHEST PA AND LAT, 02/09/2018. . FINDINGS: Portable AP view of the chest demonstrates a normal-sized cardiac silhouette in this patient post med david sternotomy and CABG. EKG lines overlie the patient. There are small bibasilar pleural-parenchymal opacities. No pneumothorax is visualized. The bones and soft tissues demonstrate no acute finding. CONCLUSION: Small bilateral pleural effusions with associated compressive atelectasis and/or consolidation. Electronically signed by: Frank Reed MD 06/12/2018 9:14 PM EST
[2018-06-12 21:36] LABS: Hematocrit 38.5 % (39.0-51.0); Hemoglobin 12.5 gm/dL (13.0-17.0); Mean Corpuscular HGB Conc 32.5 % (32.0-36.0); Mean Corpuscular Hemoglobin 30.4 pg (27.0-34.0); Mean Corpuscular Volume 93.7 fL (80.0-100.0); Mean Platelet Volume 9.1 fL (7.0-11.0); Platelet Count 104 th/mm3 (150-450); Red Blood Count 4.11 mil/mm3 (4.50-5.90); Red Cell Distribution Width 17.8 % (11.6-17.2); White Blood Count 4.8 th/mm3 (4.0-11.0)
--- NOTE | 2018-06-12 21:48 | ED ---
HPI General Chief Complaint: Shortness of Breath/Dyspnea Stated Complaint: Sob Time Seen by Provider: 06/12/18 20:18 Source: patient Mode of arrival: wheelchair Limitations: no limitations History of Present Illness 83-year-old male came to the emergency room brought by his son with history of shortness of breath over past 1 week. This is progressively worsening. The son is giving most of the history and says that he was discharged from [facility] last week. He was admitted there for chest pain and shortness of breath. He got a cardiac catheterization done as well as pleural tap to get fluid out of his right lung. However they were not told about the results of the catheterization. Patient has history of congestive heart failure and follows up with Dr. Moore. He is not complaining of any chest pain today. Son says that he becomes intensely short of breath after walking 10 steps. Upon arrival his oxygen saturation was 97% on room air. He does not require oxygen at home. No history of fever or chills. Patient appears to be anxious. They have noticed bilateral leg swelling. He takes 40 mg of Lasix twice a day. Patient is on Eliquis as well. Related Data Home Medications Medication Instructions Recorded Confirmed albuterol sulfate 2 puff INHALATION Q4-6H PRN 06/12/18 06/12/18 apixaban [Eliquis] 2.5 mg PO BID 06/12/18 06/12/18 atorvastatin 80 mg PO DAILY 06/12/18 06/12/18 carvedilol 12.5 mg PO BID 06/12/18 06/12/18 fluticasone-salmeterol [Advair HFA] 2 puff INHALATION Q12H 06/12/18 06/12/18 furosemide 40 mg PO BID 06/12/18 06/12/18 glipizide 10 mg PO BID 06/12/18 06/12/18 tamsulosin 0.4 mg PO DAILY 06/12/18 06/12/18 Allergies Allergy/AdvReac Type Severity Reaction Status Date / Time No Known Allergies Allergy Verified 06/12/18 20:01 Review of Systems ROS: all other systems reviewed are negative COUNT INCLUDES THE [facility] Medical History Medical History COPD (chronic obstructive pulmonary disease) (Acute) Diabetes (Acute) HTN (hypertension) (Acute) Myocardial infarct (Acute) Surgical History Surgical History Hx of CABG (Acute) S/P cardiac cath (Acute) Social History Social History Substance History: No History of Abuse Second Hand Smoke Exposure: No Smoking Status: Former smoker Tobacco Type: Cigarettes How Often Do You Have a Drink Containing Alcohol: Monthly or less Recent Travel in [facility] within the Last 8 Weeks: No Recent Out of Country Travel within the Last 8 Weeks: No Immunization History Tetanus Immunization: <5 Years Exam Narrative Exam Narrative: GENERAL: Awake, alert, elderly, moderate distress, anxious SKIN: Focused skin assessment warm/dry. Pale HEAD: Atraumatic. Normocephalic. EYES: Pupils equal and round. No scleral icterus. No injection or drainage. ENT: No nasal bleeding or discharge. Mucous membranes pink and moist. NECK: Trachea midline. No JVD. CARDIOVASCULAR: Regular rate and rhythm. No murmur appreciated. RESPIRATORY: No accessory muscle use. Clear to auscultation. Decreased breath sounds on the right side posteriorly from midway down GASTROINTESTINAL: Abdomen soft, non-tender, nondistended. Hepatic and splenic margins not palpable. MUSCULOSKELETAL: No obvious deformities. No clubbing. No cyanosis. Bilateral 2 + pedal edema NEUROLOGICAL: Awake and alert. No obvious cranial nerve deficits. Motor grossly within normal limits. Normal speech. PSYCHIATRIC: Appropriate mood and affect; insight and judgment normal. Course Initial Documented Vital Signs Temperature 97.2 F L 06/12/18 19:57 Pulse Rate 97 H 06/12/18 19:57 Respiratory Rate 28 H 06/12/18 19:57 Blood Pressure 163/75 H 06/12/18 19:57 Pulse Oximetry 95 06/12/18 19:57 Last Documented Vital Signs Temperature 97.9 F 06/14/18 07:58 Pulse Rate 84 06/14/18 11:34 Respiratory Rate 20 06/14/18 11:34 Blood Pressure 101/64 06/14/18 11:34 Pulse Oximetry 95 06/14/18 11:34 Medical Decision Making MDM Narrative Medical decision making narrative: 9:46 PM patient was given IV Lasix 60 mg. My suspicion was of recurrence of pleural effusion. The chest x-ray confirms that. Awaiting for the blood test result. I have explained to the son that patient will require admission again this time. 10:01 PM blood test results are back. The troponin is mildly elevated which could be secondary to the cardiac cath patient had last week. Patient has some renal insufficiency. Awaiting for the hospitalist to call back for admission. Medical Screen Exam Complete: Yes Emergency Medical Condition: Yes Lab Data Result diagrams: 06/14/18 07:03 06/14/18 07:03 Lab Results 06/12/18 06/12/18 06/12/18 Range/Units 20:40 20:40 20:40 WBC 4.8 (4.0-11.0) th/mm3 RBC 4.11 L (4.50-5.90) mil/mm3 Hgb 12.5 L (13.0-17.0) gm/dL Hct 38.5 L (39.0-51.0) % MCV 93.7 (80.0-100.0) fL MCH 30.4 (27.0-34.0) pg MCHC 32.5 (32.0-36.0) % RDW 17.8 H (11.6-17.2) % Plt Count 104 L (150-450) th/mm3 MPV 9.1 (7.0-11.0) fL Prelim Diff (Auto) Manual diff required Neut % (Auto) (16.0-70.0) % Lymph % (Auto) (9.0-44.0) % Owsley % (Auto) (0.0-8.0) % Eos % (Auto) (0.0-4.0) % Baso % (Auto) (0.0-2.0) % Neut # (Auto) (1.8-7.7) th/mm3 Lymph # (Auto) (1.0-4.8) th/mm3 Owsley # (Auto) (0.0-0.9) th/mm3 Eos # (Auto) (0.0-0.4) th/mm3 Baso # (Auto) (0.0-0.2) th/mm3 WBC Differential Manual diff final Seg Neuts % (Manual) 30 (16-70) % Band Neuts % (Manual) (0-6) % Lymphocytes % (Manual) 52 H (9-44) % Monocytes % (Manual) 12 H (0-8) % Eosinophils % (Manual) 2 (0-4) % Basophils % (Manual) 4 H (0-2) % Abs Neuts (Manual) 1.4 L (1.8-7.7) th/mm3 Differential Comment . Platelet Estimate Low L (Normal) Platelet Morphology Enlarged H (Normal) Ovalocytes 1+ H (None) Sodium 143 (136-145) meq/L Potassium 3.7 (3.5-5.1) meq/L Chloride 105 (98-107) meq/L Carbon Dioxide 31.7 (21.0-32.0) meq/L Anion Gap 6 (5-15) meq/L BUN 22 H (7-18) mg/dL Creatinine 1.80 H (0.60-1.30) mg/dL Estimated GFR 36 L (>89) mL/min POC Glucose (68-110) mg/dl Random Glucose 157 H (74-106) mg/dL Calcium 8.5 (8.5-10.1) mg/dL Total Bilirubin 0.7 (0.2-1.0) mg/dL AST 21 (15-37) U/L ALT 16 (12-78) U/L Alkaline Phosphatase 123 H (45-117) U/L Total Creatine Kinase (39-308) U/L Troponin I 0.08 H (0.02-0.05) ng/mL B-Natriuretic Peptide 361 H (0-100) pg/mL Total Protein 6.6 (6.4-8.2) g/dL Albumin 3.3 L (3.4-5.0) g/dL 06/13/18 06/13/18 06/13/18 Range/Units 01:33 01:33 01:33 WBC 5.4 (4.0-11.0) th/mm3 RBC 4.09 L (4.50-5.90) mil/mm3 Hgb 12.6 L (13.0-17.0) gm/dL Hct 38.2 L (39.0-51.0) % MCV 93.4 (80.0-100.0) fL MCH 30.7 (27.0-34.0) pg MCHC 32.8 (32.0-36.0) % RDW 17.8 H (11.6-17.2) % Plt Count 112 L (150-450) th/mm3 MPV 9.1 (7.0-11.0) fL Prelim Diff (Auto) Manual diff required Neut % (Auto) (16.0-70.0) % Lymph % (Auto) (9.0-44.0) % Owsley % (Auto) (0.0-8.0) % Eos % (Auto) (0.0-4.0) % Baso % (Auto) (0.0-2.0) % Neut # (Auto) (1.8-7.7) th/mm3 Lymph # (Auto) (1.0-4.8) th/mm3 Owsley # (Auto) (0.0-0.9) th/mm3 Eos # (Auto) (0.0-0.4) th/mm3 Baso # (Auto) (0.0-0.2) th/mm3 WBC Differential Manual diff final Seg Neuts % (Manual) 36 (16-70) % Band Neuts % (Manual) 1 (0-6) % Lymphocytes % (Manual) 48 H (9-44) % Monocytes % (Manual) 10 H (0-8) % Eosinophils % (Manual) 4 (0-4) % Basophils % (Manual) 1 (0-2) % Abs Neuts (Manual) 2.0 (1.8-7.7) th/mm3 Differential Comment . Platelet Estimate Low L (Normal) Platelet Morphology Normal (Normal) Ovalocytes 1+ H (None) Sodium 145 (136-145) meq/L Potassium 3.3 L (3.5-5.1) meq/L Chloride 106 (98-107) meq/L Carbon Dioxide 31.1 (21.0-32.0) meq/L Anion Gap 8 (5-15) meq/L BUN 21 H (7-18) mg/dL Creatinine 1.59 H (0.60-1.30) mg/dL Estimated GFR 42 L (>89) mL/min POC Glucose (68-110) mg/dl Random Glucose 96 (74-106) mg/dL Calcium 8.2 L (8.5-10.1) mg/dL Total Bilirubin 0.9 (0.2-1.0) mg/dL AST 22 (15-37) U/L ALT 16 (12-78) U/L Alkaline Phosphatase 117 (45-117) U/L Total Creatine Kinase (39-308) U/L Troponin I 0.09 H (0.02-0.05) ng/mL B-Natriuretic Peptide (0-100) pg/mL Total Protein 6.7 (6.4-8.2) g/dL Albumin 3.4 (3.4-5.0) g/dL 06/13/18 06/13/18 06/13/18 Range/Units 09:11 14:51 17:45 WBC (4.0-11.0) th/mm3 RBC (4.50-5.90) mil/mm3 Hgb (13.0-17.0) gm/dL Hct (39.0-51.0) % MCV (80.0-100.0) fL MCH (27.0-34.0) pg MCHC (32.0-36.0) % RDW (11.6-17.2) % Plt Count (150-450) th/mm3 MPV (7.0-11.0) fL Prelim Diff (Auto) Neut % (Auto) (16.0-70.0) % Lymph % (Auto) (9.0-44.0) % Owsley % (Auto) (0.0-8.0) % Eos % (Auto) (0.0-4.0) % Baso % (Auto) (0.0-2.0) % Neut # (Auto) (1.8-7.7) th/mm3 Lymph # (Auto) (1.0-4.8) th/mm3 Owsley # (Auto) (0.0-0.9) th/mm3 Eos # (Auto) (0.0-0.4) th/mm3 Baso # (Auto) (0.0-0.2) th/mm3 WBC Differential Seg Neuts % (Manual) (16-70) % Band Neuts % (Manual) (0-6) % Lymphocytes % (Manual) (9-44) % Monocytes % (Manual) (0-8) % Eosinophils % (Manual) (0-4) % Basophils % (Manual) (0-2) % Abs Neuts (Manual) (1.8-7.7) th/mm3 Differential Comment Platelet Estimate (Normal) Platelet Morphology (Normal) Ovalocytes (None) Sodium (136-145) meq/L Potassium (3.5-5.1) meq/L Chloride (98-107) meq/L Carbon Dioxide (21.0-32.0) meq/L Anion Gap (5-15) meq/L BUN (7-18) mg/dL Creatinine (0.60-1.30) mg/dL Estimated GFR (>89) mL/min POC Glucose 152 H (68-110) mg/dl Random Glucose (74-106) mg/dL Calcium (8.5-10.1) mg/dL Total Bilirubin (0.2-1.0) mg/dL AST (15-37) U/L ALT (12-78) U/L Alkaline Phosphatase (45-117) U/L Total Creatine Kinase 81 86 (39-308) U/L Troponin I 0.09 H 0.08 H (0.02-0.05) ng/mL B-Natriuretic Peptide (0-100) pg/mL Total Protein (6.4-8.2) g/dL Albumin (3.4-5.0) g/dL 06/13/18 06/14/18 06/14/18 Range/Units 21:04 07:03 07:03 WBC 5.6 (4.0-11.0) th/mm3 RBC 4.21 L (4.50-5.90) mil/mm3 Hgb 13.0 (13.0-17.0) gm/dL Hct 39.1 (39.0-51.0) % MCV 92.8 (80.0-100.0) fL MCH 30.9 (27.0-34.0) pg MCHC 33.3 (32.0-36.0) % RDW 17.5 H (11.6-17.2) % Plt Count 107 L (150-450) th/mm3 MPV 8.6 (7.0-11.0) fL Prelim Diff (Auto) Neut % (Auto) 35.8 (16.0-70.0) % Lymph % (Auto) 44.0 (9.0-44.0) % Owsley % (Auto) 15.9 H (0.0-8.0) % Eos % (Auto) 2.9 (0.0-4.0) % Baso % (Auto) 1.4 (0.0-2.0) % Neut # (Auto) 2.0 (1.8-7.7) th/mm3 Lymph # (Auto) 2.5 (1.0-4.8) th/mm3 Owsley # (Auto) 0.9 (0.0-0.9) th/mm3 Eos # (Auto) 0.2 (0.0-0.4) th/mm3 Baso # (Auto) 0.1 (0.0-0.2) th/mm3 WBC Differential . Seg Neuts % (Manual) (16-70) % Band Neuts % (Manual) (0-6) % Lymphocytes % (Manual) (9-44) % Monocytes % (Manual) (0-8) % Eosinophils % (Manual) (0-4) % Basophils % (Manual) (0-2) % Abs Neuts (Manual) (1.8-7.7) th/mm3 Differential Comment Auto diff final Platelet Estimate (Normal) Platelet Morphology (Normal) Ovalocytes (None) Sodium 142 (136-145) meq/L Potassium 3.3 L (3.5-5.1) meq/L Chloride 104 (98-107) meq/L Carbon Dioxide 30.0 (21.0-32.0) meq/L Anion Gap 8 (5-15) meq/L BUN 22 H (7-18) mg/dL Creatinine 1.66 H (0.60-1.30) mg/dL Estimated GFR 40 L (>89) mL/min POC Glucose 116 H (68-110) mg/dl Random Glucose 72 L (74-106) mg/dL Calcium 8.9 (8.5-10.1) mg/dL Total Bilirubin 1.2 H (0.2-1.0) mg/dL AST 19 (15-37) U/L ALT 16 (12-78) U/L Alkaline Phosphatase 115 (45-117) U/L Total Creatine Kinase (39-308) U/L Troponin I (0.02-0.05) ng/mL B-Natriuretic Peptide (0-100) pg/mL Total Protein 6.8 (6.4-8.2) g/dL Albumin 3.4 (3.4-5.0) g/dL 12/11/18 12/11/18 Range/Units 07:48 11:04 WBC (4.0-11.0) th/mm3 RBC (4.50-5.90) mil/mm3 Hgb (13.0-17.0) gm/dL Hct (39.0-51.0) % MCV (80.0-100.0) fL MCH (27.0-34.0) pg MCHC (32.0-36.0) % RDW (11.6-17.2) % Plt Count (150-450) th/mm3 MPV (7.0-11.0) fL Prelim Diff (Auto) Neut % (Auto) (16.0-70.0) % Lymph % (Auto) (9.0-44.0) % Owsley % (Auto) (0.0-8.0) % Eos % (Auto) (0.0-4.0) % Baso % (Auto) (0.0-2.0) % Neut # (Auto) (1.8-7.7) th/mm3 Lymph # (Auto) (1.0-4.8) th/mm3 Owsley # (Auto) (0.0-0.9) th/mm3 Eos # (Auto) (0.0-0.4) th/mm3 Baso # (Auto) (0.0-0.2) th/mm3 WBC Differential Seg Neuts % (Manual) (16-70) % Band Neuts % (Manual) (0-6) % Lymphocytes % (Manual) (9-44) % Monocytes % (Manual) (0-8) % Eosinophils % (Manual) (0-4) % Basophils % (Manual) (0-2) % Abs Neuts (Manual) (1.8-7.7) th/mm3 Differential Comment Platelet Estimate (Normal) Platelet Morphology (Normal) Ovalocytes (None) Sodium (136-145) meq/L Potassium (3.5-5.1) meq/L Chloride (98-107) meq/L Carbon Dioxide (21.0-32.0) meq/L Anion Gap (5-15) meq/L BUN (7-18) mg/dL Creatinine (0.60-1.30) mg/dL Estimated GFR (>89) mL/min POC Glucose 82 140 H (68-110) mg/dl Random Glucose (74-106) mg/dL Calcium (8.5-10.1) mg/dL Total Bilirubin (0.2-1.0) mg/dL AST (15-37) U/L ALT (12-78) U/L Alkaline Phosphatase (45-117) U/L Total Creatine Kinase (39-308) U/L Troponin I (0.02-0.05) ng/mL B-Natriuretic Peptide (0-100) pg/mL Total Protein (6.4-8.2) g/dL Albumin (3.4-5.0) g/dL Imaging Data Radiologist's impression: Chest X-Ray 06/12/18 20:34 CONCLUSION: Small bilateral pleural effusions with associated compressive atelectasis and/ or consolidation. ECG Data Attestation: I personally reviewed and interpreted this ECG as follows: Interpretation: Twelve-lead EKG was reviewed by me. Humphries. fib, low voltage, normal axis, PVC, nonspecific ST-T wave changes. Heart rate of 77 bpm. Discharge Plan Discharge Disposition Patient Disposition: ED Admit(ED Internal Use Only) Discharge Condition Condition: Stable Discharge Order Discharge Orders: Discharge Order (Routine); Ordered 06/14/18 Ordered By: Eleonora Conte ED Use Only Admit Order (Routine); Ordered 06/12/18 Ordered By: Santiago Lees Discharge Details Anticipated Discharge Date: 06/14/18 Physicians Team ED Provider: Santiago Lees Primary Care Provider: UNKNOWN, Attending Provider: Eleonora Conte Other Providers: Reina Moore I Status ED Status: Left Department Discharge Information Discharge Date/Time: 06/13/18 00:47
[2018-06-12 21:50] LABS: Albumin 3.3 g/dL (3.4-5.0); Anion Gap 6 meq/L (5-15); Aspartate Aminotransferase 21 U/L (15-37); Blood Urea Nitrogen 22 mg/dL (7-18); Calcium 8.5 mg/dL (8.5-10.1); Carbon Dioxide 31.7 meq/L (21.0-32.0); Chloride 105 meq/L (98-107); Glomerular Filtration Rate 36 mL/min (>89); Glucose,Random 157 mg/dL (74-106); Potassium 3.7 meq/L (3.5-5.1); Sodium 143 meq/L (136-145)
[2018-06-12 21:51] LABS: Alanine Aminotransferase 16 U/L (12-78)
[2018-06-12 21:54] LABS: Alkaline Phosphatase 123 U/L (45-117); Total Protein 6.6 g/dL (6.4-8.2); Troponin I 0.08 ng/mL (0.02-0.05)
[2018-06-12 22:15] LABS: Eosinophils 2 % (0-4); Lymphocytes 52 % (9-44); Monocytes 12 % (0-8)
[2018-06-12 22:19] LABS: Ovalocytes 1+
[2018-06-12] MEDS ORDERED: Dextrose 50% in Water 50 ML Vial IV.PUSH PRN (22:49)
[2018-06-12] MEDS ORDERED: Acetaminophen 325 MG Tablet PO PRN (22:51)
[2018-06-12] MEDS ORDERED: Bisacodyl 10 MG Supp RECTAL PRN (22:51)
--- NOTE | 2018-06-12 23:42 | P.HPIM ---
History of Present Illness Service: [facility] Primary Care Physician: UNKNOWN Chief Complaint: sob History of Present Illness: 83 y/o male with a history of CHF, COPD, HTN, CAD, and DM presented to the ED with sob. Patient states one week ago he was seen at [facility] where he underwent a thoracentesis and a cardiac cath with no intervention. It is unsure how compliant patient is with mediations and fluid restriction at home. He does live alone. He states ever since leaving the hospital he has been short of breath. Worse with exertion and deep breaths. He states oxygen makes him feel better. He states he drinks a lot at home with water and Gatorade. He denies any weight gain, states he has lost 30 pounds in the last 2 months, unintentionally. He denies any chest pain, fever, chills, sputum production, headaches or dizziness. Discharge paperwork reviewed that patient had from showed bnp 416, troponin .09, and non infectious pleural fluid. Records are being requested. Screedman is Dr. Moore Inpatient Certification Inpatient Certification: I certify that the inpatient services were ordered in accordance with Medicare regulations governing the order. This includes certification that hospital inpatient services are reasonable and necessary and in the case of services not specified as inpatient-only under 42 CFR 419.22(n), that they are appropriately provided as inpatient services in accordance to with the 2-midnight benchmark under 43 CFR 412.3(e) Review of Systems Review of Systems: all other systems reviewed are negative [facility] Medical History Medical History Afib (Acute) COPD (chronic obstructive pulmonary disease) (Acute) Diabetes (Acute) HTN (hypertension) (Acute) Myocardial infarct (Acute) Surgical History Surgical History Hx of CABG (Acute) S/P cardiac cath (Acute) Social History Social History Substance History: No History of Abuse Second Hand Smoke Exposure: No Smoking Status: Former smoker Tobacco Type: Cigarettes How Often Do You Have a Drink Containing Alcohol: Monthly or less Recent Travel in [place] within the Last 8 Weeks: No Recent Out of Country Travel within the Last 8 Weeks: No Immunization History Tetanus Immunization: <5 Years Medications and Allergies Allergies Allergy/AdvReac Type Severity Reaction Status Date / Time No Known Allergies Allergy Verified 06/12/18 20:01 Home Medications Medication Instructions Recorded Confirmed Type albuterol sulfate 2 puff INHALATION Q4-6H PRN 06/12/18 06/12/18 History apixaban [Eliquis] 2.5 mg PO BID 06/12/18 06/12/18 History atorvastatin 80 mg PO DAILY 06/12/18 06/12/18 History carvedilol 12.5 mg PO BID 06/12/18 06/12/18 History fluticasone-salmeterol [Advair HFA] 2 puff INHALATION Q12H 06/12/18 06/12/18 History furosemide 40 mg PO BID 06/12/18 06/12/18 History glipizide 10 mg PO BID 06/12/18 06/12/18 History tamsulosin 0.4 mg PO DAILY 06/12/18 06/12/18 History Active Medications: Active Medications Acetaminophen (Tylenol) 650 mg PO Q4H PRN PRN Reason: Temp > 100.4 Al Hydroxide/Mg Hydroxide (Milk Of Magnesia Liq) 30 ml PO Q12H PRN PRN Reason: Mild Constipation Apixaban (Eliquis) 2.5 mg PO BID [facility]ICE Atorvastatin Calcium (Lipitor) 80 mg PO DAILY [facility]URICE Bisacodyl (Dulcolax Supp) 10 mg RECTAL DAILY PRN PRN Reason: SEVERE CONSITIPATION Carvedilol (Coreg) 12.5 mg PO BID [facility] Dextrose (D50w Vial) 50 ml IV.PUSH UNSCH PRN PRN Reason: PER HYPOGLYCEMIA PROTOCOL Furosemide (Lasix) 40 mg PO BID MAURICE Glipizide (Glucotrol) 5 mg PO BID MAURICE Glucagon (Glucagon Inj) 1 mg OTHER PRN PRN PRN Reason: for Hypoglycemia Protocol Insulin Aspart (Novolog Insulin Correctional Sugar Inj) 0 unit SQ ACHS MAURICE; Protocol Lactulose (Lactulose Liq) 30 ml PO DAILY PRN PRN Reason: SEVERE CONSITIPATION Ondansetron HCl (Zofran Inj) 4 mg IV.PUSH Q6H PRN PRN Reason: NAUSEA OR VOMITING Sennosides (Senokot) 17.2 mg PO Q12H PRN PRN Reason: Moderate Constipation Sodium Chloride (Ns Flush) 2 ml IV.FLUSH BID MAURICE Sodium Chloride (Ns Flush) 2 ml IV.FLUSH PRN PRN PRN Reason: FLUSH AFTER USING IV ACCESS Tamsulosin HCl (Flomax) 0.4 mg PO DAILY MAURICE Physical Exam Vital signs: Last Vital Signs Temp 97.2 F L 06/12/18 19:57 Pulse 86 06/12/18 20:15 Resp 22 06/12/18 20:15 BP 147/79 H 06/12/18 20:15 Pulse Ox 97 06/12/18 20:15 Intake & Output 06/10/18 06/11/18 06/12/18 06/13/18 06:59 06:59 06:59 06:59 Weight 78.925 kg Narrative: GENERAL: well nourished patient who appears a little short of breath with talking SKIN: Cool and dry. HEAD: Atraumatic. Normocephalic. EYES: Pupils equal and round. No scleral icterus. No injection or drainage. CARDIOVASCULAR: Regular rate and rhythm. RESPIRATORY: No accessory muscle use. Diminished at lung bases. No crackles or wheezes noted GASTROINTESTINAL: Abdomen soft, non-tender, nondistended. Hepatic and splenic margins not palpable. MUSCULOSKELETAL: +2 bilateral LE pitting edema NEUROLOGICAL: Awake and alert. No obvious cranial nerve deficits. Motor grossly within normal limits. Normal speech. Results Labs CBC & Chem 7: 06/12/18 20:40 06/12/18 20:40 Imaging Impressions Chest X-Ray 06/12/18 20:34 CONCLUSION: Small bilateral pleural effusions with associated compressive atelectasis and/ or consolidation. Caprini VTE Risk Assessment Caprini VTE Risk Assessment: Moderate/High Risk (score >= 2) Caprini Risk Assessment Model: Point Value = 1 Point Value = 2 Point Value = 3 Point Value = 5 Age 41-60 Minor surgery BMI > 25 kg/m2 Swollen legs Varicose veins or History of unexplained or recurrent spontaneous Oral contraceptives or hormone replacement Sepsis (< 1 month) Serious lung disease, including pneumonia (< 1 month) Abnormal pulmonary function Acute myocardial infarction Congestive heart failure (< 1 month) History of inflammatory bowel disease Medical patient at bed rest Age 61-74 Arthroscopic surgery Major open surgery (> 45 min) Laparoscopic surgery (> 45 min) Malignancy Confined to bed (> 72 hours) Immobilizing plaster cast Central venous access Age >= 75 History of VTE Family history of VTE Factor V Leiden Prothrombin [id number] Lupus anticoagulant Anticardiolipin antibodies Elevated serum homocysteine Heparin-induced thrombocytopenia Other congenital or acquired thrombophilia Stroke (< 1 month) Elective arthroplasty Hip, pelvis, or leg fracture Acute spinal cord injury (< 1 month) Prophylaxis Regimen: Total Risk Factor Score Risk Level Prophylaxis Regimen 0-1 Low Early ambulation 2 Moderate Order ONE of the following: *Sequential Compression Device (SCD) *Heparin 5000 units SQ BID 3-4 Higher Order ONE of the following medications: *Heparin 5000 units SQ TID *Enoxaparin/Lovenox 40 mg SQ daily (WT < 150 kg, CrCl > 30 mL/min) *Enoxaparin/Lovenox 30 mg SQ daily (WT < 150 kg, CrCl > 10-29 mL/min) *Enoxaparin/Lovenox 30 mg SQ BID (WT < 150 kg, CrCl > 30 mL/min) AND/OR *Sequential Compression Device (SCD) 5 or more Highest Order ONE of the following medications: *Heparin 5000 units SQ TID (Preferred with Epidurals) *Enoxaparin/Lovenox 40 mg SQ daily (WT < 150 kg, CrCl > 30 mL/min) *Enoxaparin/Lovenox 30 mg SQ daily (WT < 150 kg, CrCl > 10-29 mL/min) *Enoxaparin/Lovenox 30 mg SQ BID (WT < 150 kg, CrCl > 30 mL/min) AND *Sequential Compression Device (SCD) Assessment and Plan Plan 83 y/o male with a history of CHF, COPD, HTN, CAD, and DM presented to the ED with sob. Acute CHF exacerbation BNP 361, prior 416 at -60 mg IV Lasix given in ED, cont home 40mg PO BID -Fluid restriction -Patient will need home health for CHF teaching Elevated troponin, likely secondary to CHF, r/o ACS, last cath one week ago, unknown results -Serial troponin and EKGs -Consult cardiology, patient known to Dr. Moore Recurrent pleural effusion, 1 week ago thoracentesis completed no evidence of infection Chest x ray reviewed and shows small pleural effusion -CT chest ordered due to patients weight loss, r/o malignancy HTN, chronic -Resume home medications -monitor vitals DM, chronic -ACCU checks with SSI -Diabetic diet DVT prophylaxis: Thong
[2018-06-13 02:25] LABS: Hematocrit 38.2 % (39.0-51.0); Hemoglobin 12.6 gm/dL (13.0-17.0); Mean Corpuscular HGB Conc 32.8 % (32.0-36.0); Mean Corpuscular Hemoglobin 30.7 pg (27.0-34.0); Mean Corpuscular Volume 93.4 fL (80.0-100.0); Mean Platelet Volume 9.1 fL (7.0-11.0); Platelet Count 112 th/mm3 (150-450); Red Blood Count 4.09 mil/mm3 (4.50-5.90); Red Cell Distribution Width 17.8 % (11.6-17.2); White Blood Count 5.4 th/mm3 (4.0-11.0)
[2018-06-13 02:52] LABS: Alanine Aminotransferase 16 U/L (12-78); Albumin 3.4 g/dL (3.4-5.0); Anion Gap 8 meq/L (5-15); Aspartate Aminotransferase 22 U/L (15-37); Blood Urea Nitrogen 21 mg/dL (7-18); Calcium 8.2 mg/dL (8.5-10.1); Carbon Dioxide 31.1 meq/L (21.0-32.0); Chloride 106 meq/L (98-107); Glomerular Filtration Rate 42 mL/min (>89); Glucose,Random 96 mg/dL (74-106); Potassium 3.3 meq/L (3.5-5.1); Sodium 145 meq/L (136-145)
[2018-06-13 02:54] LABS: Alkaline Phosphatase 117 U/L (45-117); Total Protein 6.7 g/dL (6.4-8.2)
[2018-06-13 03:11] LABS: Eosinophils 4 % (0-4); Lymphocytes 48 % (9-44); Monocytes 10 % (0-8)
[2018-06-13 03:13] LABS: Ovalocytes 1+; Platelet Morphology Normal (Normal)
[2018-06-13 10:29] LABS: Troponin I 0.09 ng/mL (0.02-0.05)
[2018-06-13] MEDS: Furosemide 40 MG Tablet PO SCH ×2 (11:32→21:08)
[2018-06-13] MEDS: Carvedilol 12.5 MG Tablet PO SCH ×2 (11:32→21:09)
[2018-06-13] MEDS: glipiZIDE 10 MG Tablet PO SCH ×2 (11:33→21:08)
--- NOTE | 2018-06-13 12:32 | P.PNIM ---
Subjective Interval history: Patient still requiring oxygen and does still have some shortness of breath, but this has improved compared to yesterday. Physical Exam Vital signs: Last Vital Signs Temp 97.3 F L 06/13/18 08:00 Pulse 64 06/13/18 08:14 Resp 18 06/13/18 08:00 BP 132/76 06/13/18 08:00 Pulse Ox 98 06/13/18 12:09 Intake & Output 06/11/18 06/12/18 06/13/18 06/14/18 06:59 06:59 06:59 06:59 Intake Total 100 / 100 Output Total 775 / 775 Balance -675 / -675 Weight 79.2 kg Narrative: GENERAL: NAD, A&Ox3 HEAD: Normocephalic. NECK: Supple, trachea midline. No lymphadenopathy. EYES: No scleral icterus. No injection or drainage. CARDIOVASCULAR: Regular rate and rhythm without murmurs, gallops, or rubs. RESPIRATORY: Breath sounds equal bilaterally. No accessory muscle use. Crackles at lung bases bilaterally. GASTROINTESTINAL: Abdomen soft, non-tender, nondistended. MUSCULOSKELETAL: No cyanosis, or edema. SKIN: Warm and dry. NEURO: No focal neurological deficits. Results Labs CBC & Chem 7: 06/13/18 01:33 06/13/18 01:33 Imaging Imaging: Impressions Chest X-Ray 06/12/18 20:34 CONCLUSION: Small bilateral pleural effusions with associated compressive atelectasis and/ or consolidation. Assessment and Plan Plan 83 y/o male with a history of CHF, COPD, HTN, CAD, and DM presented to the ED with sob. Acute systolic CHF exacerbation Bilateral pulmonary edema Slight improvement Continue Lasix Follow for further improvement Fluid restriction Increased difficulty with diuretics due to patient's chronic kidney disease Continue oxygen supplementation as needed Wean oxygen as tolerated as patient improves Elevated troponin levels History of CHF Cardiology following Continue to monitor on telemetry Troponin level elevations have remained flat Patient's chronic kidney disease likely is responsible for elevated troponin level Recurrent pleural effusion Small This finding may not be contributory to patient's shortness of breath No need for immediate thoracentesis Hypertension Continue baseline treatment Follow blood pressures Adjust treatments as needed Diabetes mellitus type 2 Follow blood sugars Insulin sliding scale Diabetic diet DVT prophylaxis Eliquis Progress Note: Quality VTE Deep Vein Thrombosis/Pulmonary Embolism Present on Admission: No
--- NOTE | 2018-06-13 14:55 | P.DCO ---
Physical Therapy Order: Evaluate and treat, Improve ambulation and Strength and gait training Home Health Nursing Order: Medical education, Signs/symptoms of disease process and Nursing assessment with vital signs Case Management Consult Case Management Consult-Home Health: Yes I have seen patient King Larios on 06/13/18. My clinical findings support the need for the requested home health care services because: Limited mobility due to disease progression, Deconditioned with increased weakness and Limited ability to care for self I certify that my clinical findings support that this patient is homebound because: Unsteady gait/balance, Unsafe to leave home unassisted and Unable to use public transportation
[2018-06-13 15:35] LABS: Troponin I 0.08 ng/mL (0.02-0.05)
[2018-06-13] MEDS: Insulin NovoLOG Aspart Correctional Sugar Inj SQ SCH ×3 (17:50→21:09)
--- NOTE | 2018-06-13 19:09 | ECG ---
Date Performed: 06/12/2018 Time Performed: 20:22:39 PTAGE: 83 years EKG: ATRIAL FIBRILLATION LOW QRS VOLTAGE IN EXTREMITY LEADS ABNORMAL RHYTHM ECG PREVIOUS TRACING : 08/03/2017 14.56 Since the previous tracing, no significant change noted DOCTOR: Chris Nguyen Interpretating Date/Time 06/13/2018 19:08:56
[2018-06-13] MEDS ORDERED: Melatonin 5 MG Tablet PO ONE (23:23)
[2018-06-14 01:52] VITALS: TEMP 97.9
[2018-06-14] MEDS: Insulin NovoLOG Aspart Correctional Sugar Inj SQ SCH ×2 (07:54→11:09)
[2018-06-14 08:10] LABS: Baso # (Auto) 0.1 th/mm3 (0.0-0.2); Baso % (Auto) 1.4 % (0.0-2.0); Eos # (Auto) 0.2 th/mm3 (0.0-0.4); Eos % (Auto) 2.9 % (0.0-4.0); Hematocrit 39.1 % (39.0-51.0); Lymph # (Auto) 2.5 th/mm3 (1.0-4.8); Mean Corpuscular HGB Conc 33.3 % (32.0-36.0); Mean Corpuscular Hemoglobin 30.9 pg (27.0-34.0); Mean Corpuscular Volume 92.8 fL (80.0-100.0); Mean Platelet Volume 8.6 fL (7.0-11.0); Mono # (Auto) 0.9 th/mm3 (0.0-0.9); Mono % (Auto) 15.9 % (0.0-8.0); Neut % (Auto) 35.8 % (16.0-70.0); Platelet Count 107 th/mm3 (150-450); Red Blood Count 4.21 mil/mm3 (4.50-5.90); Red Cell Distribution Width 17.5 % (11.6-17.2); White Blood Count 5.6 th/mm3 (4.0-11.0)
[2018-06-14 08:28] LABS: Albumin 3.4 g/dL (3.4-5.0); Anion Gap 8 meq/L (5-15); Aspartate Aminotransferase 19 U/L (15-37); Blood Urea Nitrogen 22 mg/dL (7-18); Calcium 8.9 mg/dL (8.5-10.1); Chloride 104 meq/L (98-107); Glomerular Filtration Rate 40 mL/min (>89); Glucose,Random 72 mg/dL (74-106); Potassium 3.3 meq/L (3.5-5.1); Sodium 142 meq/L (136-145)
[2018-06-14 08:29] LABS: Alanine Aminotransferase 16 U/L (12-78)
[2018-06-14 08:31] LABS: Alkaline Phosphatase 115 U/L (45-117); Total Protein 6.8 g/dL (6.4-8.2)
--- NOTE | 2018-06-14 09:26 | ECG ---
Date Performed: 06/13/2018 Time Performed: 14:42:57 PTAGE: 83 years EKG: ATRIAL FIBRILLATION WITH ABERRANT CONDUCTION OR VENTRICULAR PREMATURE COMPLEXES LOW QRS VOL TAGE IN EXTREMITY LEADS PROLONGED QT INTERVAL ABNORMAL ECG PREVIOUS TRACING : 06/12/2018 20.22 DOCTOR: Tarun Riley Interpretating Date/Time 06/14/2018 09:25:34
[2018-06-14] MEDS: Furosemide 40 MG Tablet PO SCH (09:40)
--- NOTE | 2018-06-14 10:28 | P.PN ---
Subjective Interval history: up and ambulating feeling better no chest discomfort or shorntess of breath good sats at room air - ambulating Physical Exam Vital signs: Vital Signs 06/13/18 12:00 06/13/18 12:09 06/13/18 19:00 Temperature 97.8 F Pulse Rate 75 Respiratory Rate 18 Blood Pressure 119/73 Pulse Oximetry 99 98 06/13/18 20:00 06/13/18 20:44 06/14/18 00:00 Temperature 99.0 F 97.9 F Pulse Rate 77 72 Respiratory Rate 20 16 Blood Pressure 114/66 93/51 L Pulse Oximetry 96 97 92 L 06/14/18 04:00 06/14/18 07:57 06/14/18 07:58 Temperature 97.9 F Pulse Rate 78 81 Respiratory Rate 16 16 Blood Pressure 104/58 L 120/68 Pulse Oximetry 96 97 96 06/14/18 09:03 Temperature Pulse Rate 82 Respiratory Rate Blood Pressure Pulse Oximetry Intake & Output 06/13/18 06/14/18 06/14/18 18:59 06:59 18:59 Intake Total 600 / 600 720 / 720 Output Total 625 / 625 400 / 400 Balance -25 / -25 320 / 320 Weight 79 kg Intake: Oral 600 / 600 720 / 720 Output: Urine 625 / 625 400 / 400 Other: # Voids 1 Date of Last Bowel Movement 06/13/18 06/13/18 06/13/18 Narrative: GENERAL: NAD, A&Ox3 HEAD: Normocephalic. NECK: Supple, trachea midline. No lymphadenopathy. EYES: No scleral icterus. No injection or drainage. CARDIOVASCULAR: irregularly irregular rhythm RESPIRATORY: slight decfreased breath sounds bases, no rales, no wheezes GASTROINTESTINAL: Abdomen soft, non-tender, nondistended. MUSCULOSKELETAL: No cyanosis, + edema both LE NEURO: No focal neurological deficits. Results - Labs CBC & Chem 7: 06/14/18 07:03 06/14/18 07:03 Laboratory Results - last 24 hr 06/13/18 06/13/18 06/13/18 09:11 14:51 17:45 WBC RBC Hgb Hct MCV MCH MCHC RDW Plt Count MPV Neut % (Auto) Lymph % (Auto) [place] % (Auto) Eos % (Auto) Baso % (Auto) Neut # (Auto) Lymph # (Auto) [place] # (Auto) Eos # (Auto) Baso # (Auto) WBC Differential Differential Comment Sodium Potassium Chloride Carbon Dioxide Anion Gap BUN Creatinine Estimated GFR POC Glucose 152 H Random Glucose Calcium Total Bilirubin AST ALT Alkaline Phosphatase Total Creatine Kinase 81 86 Troponin I 0.09 H 0.08 H Total Protein Albumin 06/13/18 06/14/18 06/14/18 21:04 07:03 07:03 WBC 5.6 RBC 4.21 L Hgb 13.0 Hct 39.1 MCV 92.8 MCH 30.9 MCHC 33.3 RDW 17.5 H Plt Count 107 L MPV 8.6 Neut % (Auto) 35.8 Lymph % (Auto) 44.0 [place] % (Auto) 15.9 H Eos % (Auto) 2.9 Baso % (Auto) 1.4 Neut # (Auto) 2.0 Lymph # (Auto) 2.5 [place] # (Auto) 0.9 Eos # (Auto) 0.2 Baso # (Auto) 0.1 WBC Differential . Differential Comment Auto diff final Sodium 142 Potassium 3.3 L Chloride 104 Carbon Dioxide 30.0 Anion Gap 8 BUN 22 H Creatinine 1.66 H Estimated GFR 40 L POC Glucose 116 H Random Glucose 72 L Calcium 8.9 Total Bilirubin 1.2 H AST 19 ALT 16 Alkaline Phosphatase 115 Total Creatine Kinase Troponin I Total Protein 6.8 Albumin 3.4 06/14/18 07:48 WBC RBC Hgb Hct MCV MCH MCHC RDW Plt Count MPV Neut % (Auto) Lymph % (Auto) [place] % (Auto) Eos % (Auto) Baso % (Auto) Neut # (Auto) Lymph # (Auto) [place] # (Auto) Eos # (Auto) Baso # (Auto) WBC Differential Differential Comment Sodium Potassium Chloride Carbon Dioxide Anion Gap BUN Creatinine Estimated GFR POC Glucose 82 Random Glucose Calcium Total Bilirubin AST ALT Alkaline Phosphatase Total Creatine Kinase Troponin I Total Protein Albumin Assessment and Plan - Plan 83 y/o male with a history of CHF, COPD, HTN, CAD, and DM presented to the ED with sob. Acute systolic CHF exacerbation Bilateral pulmonary edema Chronic atrial fibrillation Slight improvement Continue Lasix- change to po bid Follow for further improvement Fluid restriction Increased difficulty with diuretics due to patient's chronic kidney disease Continue oxygen supplementation as needed Wean oxygen as tolerated as patient improves Elevated troponin levels History of CHF Cardiology following Continue to monitor on telemetry Troponin level elevations have remained flat Patient's chronic kidney disease likely is responsible for elevated troponin level Recurrent pleural effusion Small- continue diuretics This finding may not be contributory to patient's shortness of breath No need for immediate thoracentesis Hypertension Continue baseline treatment Follow blood pressures Adjust treatments as needed Diabetes mellitus type 2 Chronic Kidney insufficiency Follow blood sugars Insulin sliding scale Diabetic diet creatinine near baseline OP ff up with PCP DVT prophylaxis Eliquis Progress Note: Quality VTE Deep Vein Thrombosis/Pulmonary Embolism Present on Admission: No
--- NOTE | 2018-06-14 10:30 | MB ---
cc: Reina Moore MD DATE: 06/14/2018 REASON FOR CONSULTATION: Shortness of breath. HISTORY OF PRESENT ILLNESS: An 83-year-old white male who consulted with progressive shortness of breath with minimal exertion, PND, and orthopnea. He has been treated with diuretics with a good response. The patient feels already back to normal. He is status post a recent hospitalization at [facility] where he underwent a thoracentesis and a cardiac catheterization, which showed a patent OLGUIN to the left anterior descending artery, a normal circumflex artery, and no intervention was required. Currently, the patient is lying almost flat in bed, in no distress, and expressing a desire to go home. PAST MEDICAL HISTORY: Diastolic heart failure, coronary artery disease, hypertension, diabetes mellitus 2, moderate aortic insufficiency, chronic atrial fibrillation, hyperlipidemia, stage III chronic kidney disease, peripheral arterial disease status post stent in his right leg. SOCIAL HISTORY: Former smoker, does not drink. ALLERGIES: NO KNOWN. PAST SURGICAL HISTORY: Carpal tunnel and CABG. CURRENT MEDICATIONS: Include Eliquis 2.5 mg twice a day, Lipitor 80 mg daily, carvedilol 12.5 mg twice a day, Lasix 80 mg twice a day, glipizide, and tamsulosin. PHYSICAL EXAMINATION: GENERAL: The patient is in no acute distress. VITAL SIGNS: Blood pressure 120/68 mmHg, heart rate 81 beats per minute. HEAD AND NECK: Without JVD or carotid bruits. LUNGS: Clear to auscultation. HEART: Irregularly irregular rhythm. No murmurs heard. ABDOMEN: Benign without visceromegaly or bruits. EXTREMITIES: With 1+ edema bilaterally. DIAGNOSTIC DATA: CBC remarkable for a platelet count of 107. BMP remarkable for a potassium of 3.3, creatinine of 1.66, GFR of 40. Troponins mildly elevated, but flat at 0.08 and 0.09. Electrocardiogram with atrial fibrillation with rare PVCs, low voltage over the limb leads. Chest x-ray, small bilateral effusions. He has an echocardiogram from my office in April of this year with an ejection fraction of 55%, moderate left ventricular hypertrophy, and moderate aortic insufficiency. ASSESSMENT: 1. Diastolic congestive heart failure exacerbation. 2. Hypokalemia. 3. Chronic atrial fibrillation. 4. Hypertension. 5. Chronic kidney disease. 6. Chronic obstructive pulmonary disease. PLAN: Continue current medical management with diuretic, beta tara, and Eliquis adjusted to renal function. The patient will require potassium replacement. We will start oral potassium and monitor. No further cardiac testing needed at this time. The patient can be discharged once potassium fully repleted and be followed up as an outpatient. MD JULIÁN Swann/frederick , 09:43 AM , 09:54 AM
[2018-06-14 11:35] VITALS: BP 101/64; PULSE 84; RESP 20; O2SAT 95
== END 2018-06-14 11:38 | disposition home health service (06) ==
LOC: NEPE 19:56 → INTOOBSV 22:33 → NEDA 22:33 → HCIN 06-13 00:10
PROVIDERS: ADMIT Internal Medicine; ATTEND Internal Medicine